=== PATIENT | female | born 1980 | race Caucasian/White ===

== ENCOUNTER 2017-12-13 14:37 | Emergency (ER) | END 2017-12-13 18:37 | disposition home or self-care (01) ==

== ENCOUNTER 2019-01-16 14:49 | Emergency (ER) | payer OTHER ==
[~2019-01-16] VITALS: Ht 147.3 cm; Wt 76.0 kg
[~2019-01-16 14:49] MED LIST: IBUP-1542 PO; NAPR-985 PO; PREN-47 PO
[2019-01-16 15:05] VITALS: Ht 147.3 cm; Wt 76.0 kg
[2019-01-16] MEDS ORDERED: ONDANSETRON 4 MG INJ IV STA (16:09)
[2019-01-16] MEDS ORDERED: SOD CHLORIDE 0.9% 1,000 ML IV STA (16:09)
[2019-01-16] MEDS ORDERED: LIDOCAINE/MYLANTA 40 ML BTL PO ONE (16:30)
[2019-01-16 18:37] VITALS: BP 116/73; PULSE 100; RESP 17
== END 2019-01-16 18:46 | disposition home or self-care (01) ==
LOC: FTE 14:49
DX: O26.891 Other specified pregnancy related conditions, first trimester (principal); R10.13 Epigastric pain; R19.7 Diarrhea, unspecified; Z3A.09 9 weeks gestation of pregnancy
CPT/HCPCS: 76705; 76801; 80053; 81001; 81025; 83690; 84702; 85025; 96361; 96374; J2405; J7030; Z7502; Z7610

== ENCOUNTER 2019-02-21 20:34 | Inpatient (IN) | payer OTHER ==
[~2019-02-21] VITALS: Wt 75.0 kg
[2019-02-21] MEDS ORDERED: ACETAMINOPHEN 325 MG TAB PO STA (22:05)
[2019-02-21] MEDS ORDERED: ONDANSETRON 4 MG INJ IV STA (22:05)
[2019-02-21] MEDS ORDERED: SOD CHLORIDE 0.9% 1,000 ML IV STA (22:05)
[2019-02-22] MEDS ORDERED: SODIUM CHLORIDE 0.9% 1L BAG IV* STA (00:38)
[2019-02-22] MEDS ORDERED: ACETAMINOPHEN 325 MG TAB PO PRN ×2 (01:00→03:30)
[2019-02-22] MEDS ORDERED: AMPICILLIN 2 GM/NS (PMX) 100 ML IVPB ONE (01:00)
[2019-02-22] MEDS ORDERED: ONDANSETRON 4 MG INJ IV PRN (01:00)
[2019-02-22 02:45] VITALS: BP 95/55; PULSE 99; RESP 20
[2019-02-22] MEDS: DEXTROSE 5%-0.45% NACL 1,000 ML IV SCH ×2 (04:19→19:20)
[2019-02-22] MEDS ORDERED: AMPICILLIN 1 GM/NS (PMX) 50 ML IVPB SCH (05:46)
[2019-02-22] MEDS: AMPICILLIN 2 GM/NS (PMX) 100 ML IVPB SCH ×3 (06:46→19:14)
[2019-02-22 08:21] VITALS: BP 96/61; PULSE 97; RESP 18
[2019-02-22 16:16] VITALS: BP 100/56; PULSE 96; RESP 18
[2019-02-22 19:34] VITALS: BP 104/56; PULSE 99; RESP 18
[2019-02-23] MEDS ORDERED: FLU VACC QS 2019-20 (6MOS UP) 0.5 ML SYG IM* ONE (10:00)
== END 2019-02-22 20:30 | disposition home or self-care (01) | DRG 833 ==
LOC: FTE 20:34 → MS1 02-22 01:02
PROVIDERS: ADMIT Obstetrics & Gynecology; ATTEND Obstetrics & Gynecology
DX: O26.892 Other specified pregnancy related conditions, second trimester (principal); R10.13 Epigastric pain; R11.2 Nausea with vomiting, unspecified; Z3A.14 14 weeks gestation of pregnancy
CPT/HCPCS: 36415; 76705; 76805; 80053; 81001; 83605; 83690; 84702; 85025; 85610; 85730; 86900; 86901; 96361; 96374; J0290; J2405; J7030; J7042